=== PATIENT | male | born 1980 | race Hispanic/Latino ===

== ENCOUNTER 2018-02-03 22:39 | Emergency (ER) | payer OTHER ==
[2018-02-03 22:42] VITALS: BP 146/89; PULSE 88; RESP 20; TEMP 98; O2SAT 98; BMI 40.1
--- NOTE | 2018-02-03 23:12 | ED PDOC ---
Lower Extremity Pain/Injury Time Seen by Provider: 02/03/18 23:11 Chief Complaint (Nursing): Lower Extremity Problem/Injury Chief Complaint (Provider): right knee pain History Per: Patient (37 y/o male here with knee pain that occurred after stepping on ladder at work. States he heard a pop in right knee and notes moderate pain.) Past Medical History Reviewed: Historical Data, Nursing Documentation, Vital Signs Vital Signs: Last Vital Signs Temp 98 F 02/03/18 22:41 Pulse 88 02/03/18 22:41 Resp 20 02/03/18 22:41 BP 146/89 02/03/18 22:41 Pulse Ox 98 02/03/18 22:41 - Medical History PMH: HTN, Hypercholesterolemia - Family History Family History: States: No Known Family Hx - Home Medications Home Medications: Ambulatory Orders Medication Instructions Recorded Naproxen 375 mg PO Q8 PRN #21 tablet 02/03/18 - Allergies Allergies/Adverse Reactions: Allergies Allergy/AdvReac Type Severity Reaction Status Date / Time No Known Allergies Allergy Verified 02/03/18 22:44 Review of Systems ROS Statement: Except As Marked, All Systems Reviewed And Found Negative Physical Exam - Reviewed Nursing Documentation Reviewed: Yes Vital Signs Reviewed: Yes - Physical Exam Appears: Positive for: Well, Non-toxic, No Acute Distress Head Exam: Positive for: ATRAUMATIC, NORMAL INSPECTION, NORMOCEPHALIC Skin: Positive for: Normal Color, Warm, DRY Eye Exam: Positive for: EOMI, Normal appearance, PERRL ENT: Positive for: Normal ENT Inspection Neck: Positive for: Normal, Painless ROM Cardiovascular/Chest: Positive for: Regular Rate, Rhythm Respiratory: Positive for: CNT, Normal Breath Sounds Gastrointestinal/Abdominal: Positive for: Normal Exam, Soft Back: Positive for: Normal Inspection Extremity: Positive for: Normal ROM, Swelling (right knee effusion noted mild- moderate. Able to flex knee without assistance.) Neurologic/Psych: Positive for: Alert, Oriented - ECG O2 Sat by Pulse Oximetry: 98 - Progress ED Course And Treament: xry of knee: no fx placed in knee immobilizer and crutch instructions Disposition - Clinical Impression Clinical Impression: Knee injury - Patient ED Disposition Is Patient to be Admitted: No - Disposition Referrals: Jhon Warren MD [Staff Provider] - Disposition: Routine/Home Disposition Time: 23:46 Condition: FAIR Prescriptions: Naproxen 375 mg PO Q8 PRN #21 tablet PRN Reason: Pain, Moderate (4-7) Instructions: Knee Pain (DC) Forms: [facility] (Serbian), [facility] School/Work Excuse
--- NOTE | 2018-02-04 08:14 | RAD ---
PROCEDURE: Right Knee Radiographs. HISTORY: knee injury COMPARISON: None. FINDINGS: BONES: No acute fracture or destructive bony lesion identified. JOINTS: Elbow joint space narrowing is not prominent at the patellofemoral joint, limited osteophyte development is seen indicative of mild degenerative joint disease. Borderline similar change appears at the medial femorotibial compartment. JOINT EFFUSION: There is a small suprapatellar bursa effusion identified. OTHER FINDINGS: None. IMPRESSION: Mild degenerative joint disease. No acute fracture or dislocation appreciated. Mild suprasellar bursa effusion.
== END 2018-02-03 23:54 | disposition home or self-care (01) ==
LOC: H.ER 22:39
DX: S89.91XA Unspecified injury of right lower leg, initial encounter (principal); X50.9XXA Other and unspecified overexertion or strenuous movements or postures, initial encounter; Y99.0 Civilian activity done for income or pay; E78.00 Pure hypercholesterolemia, unspecified; I10 Essential (primary) hypertension; M17.11 Unilateral primary osteoarthritis, right knee